=== PATIENT | male | born 1995 | race Two or more races ===

== ENCOUNTER 2018-06-07 05:17 | Inpatient (IN) | payer BC ==
[2018-06-06 13:49] VITALS: BMI 23.9
[2018-06-07] MEDS ORDERED: PROPOFOL 20 ML ONE ×2 (07:15→08:28)
[2018-06-07] MEDS ORDERED: MIDAZOLAM HCL 2 MG/2 ML SINGLE DOSE VIAL ONE (07:15)
[2018-06-07] MEDS ORDERED: ROCURONIUM BROMIDE 50 MG/5 ML VIAL ONE ×2 (07:18→08:39)
[2018-06-07] MEDS ORDERED: LIDOCAINE HCL/PF 2% SDV 5ML VIAL ONE (07:20)
[2018-06-07] MEDS ORDERED: SUCCINYLCHOLINE CHLORIDE 200 MG/10 ML VIAL ONE (07:23)
[2018-06-07] MEDS ORDERED: BUPIVACAINE HCL/PF 0.5% (5MG/ML) 10 ML VIAL ONE (07:27)
[2018-06-07] MEDS ORDERED: THROMBIN (BOVINE) 5,000 UNIT VIAL TP ONE (07:27)
[2018-06-07] MEDS ORDERED: GENTAMICIN SO4 80 MG/2 ML VIAL ONE (07:28)
[2018-06-07] MEDS ORDERED: PHENYLEPHRINE HCL 10 MG/1 ML SINGLE DOSE VIAL ONE (07:30)
[2018-06-07] MEDS ORDERED: ePHEDrine SULFATE 50 MG/1 ML AMPULE ONE (07:30)
--- NOTE | 2018-06-07 08:12 | HP ---
CHIEF COMPLAINT: neck pain PCP: HISTORY OF PRESENT ILLNESS: 23 yo M with no significant PMHx presents for elective neurosurgery. He states for the past several months he has had progressive cervical pain. He describes constant 8/10 right neck that radiates down right arm. Pain is exacerbated by sudden movements with no alleviating factors. Accompanied by numbness and tingling down right arm. He has been diagnosed with cervical spondylolysis and instability. He denies CP, GRANADOS, SOB, abdominal pain, nausea, vomiting, fever or chills. Recent Travel:Denies PAST MEDICAL HISTORY:none PAST SURGICAL HISTORY: maxilofacial surgery. Social History: Smoking:quit ; previous 2 pack year history. Alcohol:social Drugs: marijuana in past. Family History:Mother (HTN) Allergies No Known Allergies Allergy (Verified 06/06/18 13:43) HOME MEDICATIONS: Home Medications Medication Instructions Recorded NK [No Known Home Medication] 06/06/18 REVIEW OF SYSTEMS CONSTITUTIONAL: Absent: fever, chills, diaphoresis, generalized weakness, malaise, loss of appetite, weight change HEENT: Absent: rhinorrhea, nasal congestion, throat pain, throat swelling, difficulty swallowing, mouth swelling, ear pain, eye pain, visual changes CARDIOVASCULAR: Absent: chest pain, syncope, palpitations, irregular heart rate, lightheadedness , peripheral edema RESPIRATORY: Absent: cough, shortness of breath, dyspnea with exertion, orthopnea, wheezing, stridor, hemoptysis GASTROINTESTINAL: Absent: abdominal pain, abdominal distension, nausea, vomiting, diarrhea, constipation, melena, hematochezia GENITOURINARY: Absent: dysuria, frequency, urgency, hesitancy, hematuria, flank pain, genital pain MUSCULOSKELETAL: Absent: myalgia, arthralgia, joint swelling, back pain, neck pain SKIN: Absent: rash, itching, pallor HEMATOLOGIC/IMMUNOLOGIC: Absent: easy bleeding, easy bruising, lymphadenopathy, frequent infections ENDOCRINE: Absent: unexplained weight gain, unexplained weight loss, heat intolerance, cold intolerance NEUROLOGIC: paresthesias Absent: headache, focal weakness, dizziness, unsteady gait, seizure, mental status changes, bladder or bowel incontinence PSYCHIATRIC: Absent: anxiety, depression, suicidal or homicidal ideation, hallucinations. PHYSICAL EXAMINATION Vital Signs - 24 hr 06/07/18 06:49 Temperature 98.5 F Pulse Rate 78 Respiratory 16 Rate Blood Pressure 138/85 O2 Sat by Pulse 98 Oximetry (%) GENERAL: AAOx3, NAD HEAD: NCAT EYES: PERRLA, EOMI, sclera anicteric, conjunctiva clear. No lid lag. EARS, NOSE, THROAT: Moist mucous membranes. NECK: Supple without lymphadenopathy, JVD, or masses. LUNGS:CTAB. No wheezes, and no crackles. No accessory muscle use. HEART: RRR, normal S1 and S2 without murmur, rub or gallop. ABDOMEN: Soft, NTND, NABS, no guarding, no rebound, no masses. No hepatomegaly or splenomegaly. MUSCULOSKELETAL: No CVA tenderness. LOWER EXTREMITIES: 2+ pulses, warm, well-perfused. No calf tenderness. No peripheral edema. NEUROLOGICAL: Cranial nerves II-XII intact. Normal speech. gait not observed. 5 /5 strength upper and lower ext. No sensory def. PSYCHIATRIC: Cooperative. Good eye contact. Appropriate mood and affect. SKIN: Warm, dry, normal turgor, no rashes or lesions noted, normal capillary refill. ASSESSMENT/PLAN: 23 yo M with no significant PMHx presents for elective spinal surgery. Problem List - Problem (1) Cervical spondylolysis Assessment/Plan: Dr. Mustafa with take to OR today for elective spinal intervention. Visit type - Emergency Visit Emergency Visit: No - New Patient This patient is new to me today: Yes Date on this admission: 06/07/18 - Critical Care Critical Care patient: No
[2018-06-07] MEDS ORDERED: ceFAZolin 2 GRAM PREMIX BAG IVPB ONE (08:22)
[2018-06-07] MEDS ORDERED: VANCOMYCIN 1 GRAM (PRE-DOCKED) 1,000 MG/250 ML BAG IVPB ONE (08:30)
[2018-06-07] MEDS ORDERED: DEXAMETHASONE SOD PHOSPHATE 4 MG/1 ML VIAL ONE (08:31)
[2018-06-07] MEDS ORDERED: LIDOCAINE 1%/EPI 1:100000 (50 ML MULTI DOSE VIAL) NR ONE (08:41)
[2018-06-07] MEDS ORDERED: VANCOMYCIN 1,000 MG VIAL (RESTRICTED TO ID ONLY) ONE (08:43)
--- NOTE | 2018-06-07 09:00 | PN ---
Teaching Attending Note Name of Resident: Ayaz Cabrrea ATTENDING PHYSICIAN STATEMENT I saw and evaluated the patient. I reviewed the resident's note and discussed the case with the resident. I agree with the resident's findings and plan as documented. SUBJECTIVE: This is a 23 year old man with a history of cervical spondylosis and instability who comes in today for cervical spine surgery. For the past several months, he has been having worsening neck pain radiating down his right arm with numbness and tingling. OBJECTIVE: Vital Signs Period Temp Pulse Resp BP Sys/Alvarado Pulse Ox Last 24 Hr 98.5 F 78 16 138/85 98 HEART: S1S2, RRR LUNGS: Clear ABDOMEN: Soft, non-tender, non-distended, normal BS EXTREMITIES: No edema Laboratory Tests 06/07/18 06:23 Blood Type O POSITIVE Antibody Screen Negative Home Medications Medication Instructions Recorded NK [No Known Home Medication] 06/06/18 ASSESSMENT AND PLAN: This is a 23 year old man with a history of cervical spondylosis and instability with neck pain radiating down his right arm with numbness and tingling who comes in for cervical spine surgery. 1. Cervical spondylosis and instability - Plan for surgery today
[2018-06-07] MEDS ORDERED: ONDANSETRON 4 MG/2 ML VIAL ONE (09:13)
[2018-06-07] MEDS ORDERED: BACITRACIN 50,000 UNITS VIAL NR ONE (09:23)
[2018-06-07] MEDS ORDERED: GENTAMICIN SO4 80 MG/2 ML VIAL IVPB ONE (09:24)
[2018-06-07] MEDS ORDERED: HYDROGEN PEROXIDE 473 ML PO ONE (09:26)
[2018-06-07] MEDS ORDERED: NEOSTIGMINE METHYLSULFATE 0.5 MG/1 ML - 10 ML MDV ONE (09:34)
[2018-06-07] MEDS ORDERED: GLYCOPYRROLATE 0.2 MG/1 ML VIAL ONE (09:36)
[2018-06-07] MEDS ORDERED: ONDANSETRON 4 MG/2 ML VIAL IVPUSH PRN (09:46)
[2018-06-07] MEDS ORDERED: LACTATED RINGERS SOLUTION 1,000 ML IV SCH (10:00)
[2018-06-07] MEDS ORDERED: diphenhydrAMINE HCL 25 MG CAPSULE (FP) PO PRN (10:43)
[2018-06-07] MEDS ORDERED: HYDROmorphone HCl 2 MG/ML VIAL ONE (10:49)
[2018-06-07] MEDS: HYDROmorphone HCL CARPU-JECT 2 MG/1 ML DISP.SYRIN IVPUSH PRN ×4 (10:54→11:40)
--- NOTE | 2018-06-07 12:08 | OP ---
Operative Note - Note: Operative Date: 06/07/18 Pre-Operative Diagnosis: Cervical Spondylosis and instability Operation: C6 corpectomy and jew of lordosis with reconstruction using PEEK cage and anterior plating Post-Operative Diagnosis: Same as Pre-op Surgeon: Carmelo Mustafa Tip Mender: Leti Armenta Anesthesiologist/DIRECTOR OF MARKET ANALYSIS: Deedee Girard Anesthesia: General Estimated Blood Loss (mls): 30 Drains, Volume Out (mls): 450 (lainez) Fluid Volume Replaced (mls): 1,000 Operative Report Dictated: Yes
--- NOTE | 2018-06-07 12:09 | SURG ---
Surgery Options Trader Note Options Trader: Leti Armenta PA-C Date of Service: 06/07/18 Diagnosis: Cervical Spondylosis and instability Procedure: C6 corpectomy and nondenominational of lordosis with reconstruction using PEEK cage and anterior plating I was present for the entirety of the operative procedure. For further detail, please refer to operative report. Visit type - Case Type Case Type: Scheduled - Emergency Emergency Visit: No - New patient This patient is new to me today: Yes Date on this admission: 06/07/18
[2018-06-07] MEDS: ONDANSETRON 4 MG/2 ML VIAL IVPUSH PRN ×3 (14:02→20:16)
[2018-06-07] MEDS ORDERED: PROMETHAZINE HCL 25 MG/1 ML VIAL ONE (14:06)
[2018-06-07] MEDS ORDERED: PROMETHAZINE HCL 25 MG/1 ML VIAL IVPUSH ONE (14:12)
[2018-06-07] MEDS: LACTATED RINGERS SOLUTION 1,000 ML/1,000 ML INFUS.BAG IV SCH (14:41)
[2018-06-07] MEDS: DOCUSATE SODIUM 100 MG CAPSULE (FP) PO SCH ×2 (16:31→21:29)
[2018-06-07] MEDS ORDERED: ceFAZolin SODIUM 1 GM VIAL ONE (17:00)
[2018-06-07] MEDS ORDERED: DEXTROSE 5%-WATER - 50 ML IVPB ONE (17:00)
[2018-06-07] MEDS: CEFAZOLIN 1 GM in DEXTROSE 5%-WATER - 50 ML IVPB SCH (17:14)
[2018-06-07] MEDS ORDERED: FLU VACCINE QUAD 60 MCG/0.5 ML (MDV 18-19) IM ONE (18:00)
[2018-06-07] MEDS: morphine SULFATE 4 MG/ML VIAL IVPUSH PRN (18:08)
[2018-06-07] MEDS: HEPARIN NA (PORCINE) 5,000 UNITS/ML 1ML VIAL SQ SCH (21:29)
[2018-06-08] MEDS ORDERED: ceFAZolin SODIUM 1 GM VIAL ONE ×3 (00:37→16:56)
[2018-06-08] MEDS ORDERED: DEXTROSE 5%-WATER - 50 ML IVPB ONE ×3 (00:37→16:56)
[2018-06-08] MEDS: CEFAZOLIN 1 GM in DEXTROSE 5%-WATER - 50 ML IVPB SCH ×3 (01:25→18:25)
[2018-06-08] MEDS: morphine SULFATE 4 MG/ML VIAL IVPUSH PRN ×2 (02:28→12:04)
[2018-06-08] MEDS: DOCUSATE SODIUM 100 MG CAPSULE (FP) PO SCH ×3 (05:35→21:16)
[2018-06-08] MEDS: HEPARIN NA (PORCINE) 5,000 UNITS/ML 1ML VIAL SQ SCH ×3 (05:35→21:24)
[2018-06-08 06:47] LABS: ANION GAP 6 MMOL/L (8-16); BLOOD UREA NITROGEN 12 mg/dL (7-18); CALCIUM 9.6 mg/dL (8.5-10.1); CHLORIDE 100 mmol/L (98-107); CO2 31 mmol/L (21-32); CREATININE 0.8 mg/dL (0.55-1.3); GLUCOSE,RANDOM 96 mg/dL (74-106); POTASSIUM 3.7 mmol/L (3.5-5.1); SODIUM 138 mmol/L (136-145)
[2018-06-08 06:49] LABS: HEMATOCRIT 41.6 % (35.4-49); HEMOGLOBIN 13.8 GM/dL (11.7-16.9); MCH 28.3 pg (25.7-33.7); MCHC 33.2 g/dl (32.0-35.9); MEAN CELL VOLUME 85.3 fl (80-96); MEAN PLT VOLUME 8.2 fl (7.5-11.1); PLATELET COUNT 249 K/MM3 (134-434); RBC 4.87 M/mm3 (4.00-5.60); RDW 13.1 % (11.9-15.9); WHITE BLOOD COUNT 14.9 K/mm3 (4.0-10.0)
[2018-06-08] MEDS ORDERED: BENZOCAINE/MENTH/CETYLPYRD CL 1 EACH LOZENGE MM PRN (08:49)
--- NOTE | 2018-06-08 08:54 | PN ---
Progress Note (short form) - Note Progress Note: Surgery POD #1 C5-C7 ACDF patient seen and examined at bedside. He reports one episode of vomiting last night but denies nausea. C/o sore throat and some phlegm but wants to eat this morning. He still has some paresthesias in his hands right> left but denies any new or worsening radiculopathy. He states his pain is controlled and he has been OOB ambulating without assistance. He denies any CP, SOB, Nausea, fever or chills. Vital Signs Temp 98.2 F 06/08/18 06:00 Pulse 70 06/08/18 06:00 Resp 18 06/08/18 06:00 BP 142/95 06/08/18 06:00 Pulse Ox 99 06/07/18 21:00 Intake & Output 06/07/18 06/07/18 06/08/18 11:59 23:59 11:59 Intake Total 1650 425 Output Total 460 875 800 Balance 1190 -450 -800 Intake: IV 1650 375 LACTATED RINGERS SOLUTION 375 1,000 ml In 1,000 ml @ 125 mls/hr IV ASDIR HUYEN Rx#:[id number] IVPB 50 Output: Urine 450 875 800 Void 575 800 Estimated Blood Loss 10 Other: Voiding Method Urinal # Unmeasured Voids Void 1 CBC, BMP 06/08/18 05:30 06/08/18 05:30 ALISIA Drain did not put out anything overnight, was found to be clotted off. Stripped this morning at bedside, produced 25cc of drainage with clots seen throughout. Drain tubing was patent after stripping. PE: A&Ox3, NAD Unlabored resp on RA Dressing c/d/i with surrounding tissue intact, no tracking erythema, edema or evidence of collection or active d/c. Drain secure and clean and dry. trachea at midline no deviation of thyroid upon swallowing. B/L UE gripping and wrist extension and flexion. Gross sensation to light touch intact throughout. B/L LE compartments soft, supple and non-tender to palpation with +2 pedal pulses Problem List - Problems (1) Cervical spondylolysis Assessment/Plan: POD #1 ACDF doing well. 1) Continue DVT prophylaxis 2) OOB as tolerated 3) encourage daily IS 4) c-collar 23hr/day 5) plan to d/c drain this afternoon and d/c home pending drain output. Evaluation and plan discussed with Dr Mustafa Code(s): M43.02 - SPONDYLOLYSIS, CERVICAL REGION
[2018-06-08] MEDS ORDERED: PT OWN MED DRAWER 7, Y5N ONE (09:33)
[2018-06-08] MEDS: FOLIC ACID 1 MG TABLET (FP) PO SCH (09:51)
[2018-06-08] MEDS: FERROUS SO4 325 MG TABLET (FP) PO SCH (09:51)
[2018-06-08] MEDS: LACTATED RINGERS SOLUTION 1,000 ML/1,000 ML INFUS.BAG IV SCH (12:52)
--- NOTE | 2018-06-08 13:24 | PROC ---
Procedure Note Procedure: ALISIA removed from anterior neck with distal tip intact. Area around ostium cleansed. Edges approximated and covered with dermabond, as well as transverse incision. Covered both with new clean dry dressing. Tolerated well. DC planning 06/09/18
--- NOTE | 2018-06-08 15:44 | PN ---
Physical Exam: SUBJECTIVE: Patient seen and examined this morning at bedside. Patient feels some tenderness over the incision site and upper back however it improves with morphine. Continues to use his incentive spirometer multiple times an hour. Complains of some throat soreness and cough productive of clear phlegm. Able to urinate however he feels he does not completely empty his bladder. Denies any fevers, chills, nausea, vomiting or SOB. OBJECTIVE: Vital Signs Period Temp Pulse Resp BP Sys/Alvarado Pulse Ox Last 24 Hr 97.8 F-98.3 F 68-88 15-20 137-150/75-95 98-99 GENERAL: A&Ox3, NAD HEAD: NCAT EYES: PERRL, EOMI ENT: Moist mucous membranes NECK: Wearing cervical collar LUNGS: Breath sounds equal, CTAB, no wheezes HEART: Regular rate and rhythm, S1, S2 without murmur, rub or gallop. ABDOMEN: Soft, nontender, nondistended, normoactive bowel sounds, no guarding EXTREMITIES: 2+ pulses, no edema. NEUROLOGICAL: Cranial nerves II through XII grossly intact. Normal speech. Gait not observed. C5-T1 Gross sensation intact. 5/5 muscle strength to handgrip, elbow flexion and extension, shoulder abduction SKIN: Warm, dry Laboratory Results - last 24 hr 06/08/18 06/08/18 05:30 05:30 WBC 14.9 H RBC 4.87 Hgb 13.8 Hct 41.6 MCV 85.3 MCH 28.3 MCHC 33.2 RDW 13.1 Plt Count 249 MPV 8.2 Sodium 138 Potassium 3.7 Chloride 100 Carbon Dioxide 31 Anion Gap 6 L BUN 12 Creatinine 0.8 Creat Clearance w eGFR > 60 Random Glucose 96 Calcium 9.6 Active Medications Benzocaine/Menthol (Cepacol Lozenge -) 1 each MM PRN PRN PRN Reason: SORE THROAT Diphenhydramine HCl (Benadryl -) 25 mg PO Q6H PRN PRN Reason: FOR ITCHING Docusate Sodium (Colace -) 100 mg PO TID [facility] Last Admin: 06/08/18 15:15 Dose: 100 mg Ferrous Sulfate (Feosol -) 325 mg PO DAILY [facility] Last Admin: 06/08/18 09:51 Dose: 325 mg Folic Acid (Folic Acid -) 1 mg PO DAILY [facility] Last Admin: 06/08/18 09:51 Dose: 1 mg Heparin Sodium (Porcine) (Heparin -) 5,000 unit SQ Q8H [facility] Last Admin: 06/08/18 15:14 Dose: 5,000 unit Cefazolin Sodium 1 gm/ (Dextrose) 50 mls @ 100 mls/hr IVPB Q8H [facility] Last Admin: 06/08/18 18:25 Dose: 100 mls/hr Lactated Ringer's (Lactated Ringers Solution) 1,000 ml in 1,000 mls @ 125 mls/ hr IV ASDIR [facility] Last Admin: 06/08/18 12:52 Dose: Not Given Morphine Sulfate (Morphine Sulfate) 3 mg IVPUSH Q4H PRN PRN Reason: breakthrough Last Admin: 06/08/18 12:04 Dose: 3 mg Ondansetron HCl (Zofran Injection) 4 mg IVPUSH Q6H PRN PRN Reason: NAUSEA Last Admin: 06/07/18 20:16 Dose: 4 mg Oxycodone HCl (Roxicodone -) 5 mg PO Q4H PRN PRN Reason: PAIN LEVEL 1-5 Last Admin: 06/08/18 18:22 Dose: 5 mg Oxycodone HCl (Roxicodone -) 10 mg PO Q4H PRN PRN Reason: PAIN LEVEL 6-10 ASSESSMENT/PLAN: 23 yo M with no significant PMHx presents for elective spinal surgery. #Cervical Spondylolysis -POD#1 S/P C6 corpectomy and mandaeism of lordosis with reconstruction using PEEK cage and anterior plating -ALISIA Drain removed from anterior neck, wound site dressed by Surgical PA -Continue pain control via Morphine, Oxycodone -Zofran for Nausea -Continue Cefazolin (Started on 06/07) -Bowel regimen via Colace -Incentive spirometer -OOB as tolerated -Continue to use C-Collar 23 hours/day -Neuro checks Q2H #FEN -LR @ 125 mls/hr -Lytes wnl -Regular diet #PPx -DVT: Heparin Dispo: Likely DC tmrw Visit type - Emergency Visit Emergency Visit: No - New Patient This patient is new to me today: Yes Date on this admission: 06/08/18 - Critical Care Critical Care patient: No - Discharge Referral Referred to [facility] No
[2018-06-08] MEDS: oxyCODONE HCL 5 MG TABLET PO PRN ×2 (18:22→21:41)
--- NOTE | 2018-06-08 19:06 | PN ---
Teaching Attending Note Name of Resident: Katerina Diaz ATTENDING PHYSICIAN STATEMENT I saw and evaluated the patient. I reviewed the resident's note and discussed the case with the resident. I agree with the resident's findings and plan as documented. SUBJECTIVE:seen around 1 pm No fever or chills, neck pain. no weakness. LUE numbness OBJECTIVE: NAD CV: RRR Lungs: CTAB Ext : no edema anterior neck surgical dressing with drain . Neuro : strength 5/5 in upper and lower ext proximally and distally. reflexes 2 + knee jerk and biceps b/l . sensation decreased to light touch in L hand, arm and upper arm ASSESSMENT AND PLAN: 23 y/o man withh/o cervical spondylosis with instanility who presented for sx. 1- cervical spondylosis, s/p corpectomy and pentecostal of lordosis . POD 1 - pain control . dc morphine , cont oxy - drain removal tody monitor gait and neuro exam d/w sx team leukocytosis is likely reactive dc tomorrow
[2018-06-09] MEDS ORDERED: ceFAZolin SODIUM 1 GM VIAL ONE ×3 (00:32→16:47)
[2018-06-09] MEDS ORDERED: DEXTROSE 5%-WATER - 50 ML IVPB ONE ×3 (00:32→16:47)
[2018-06-09] MEDS: CEFAZOLIN 1 GM in DEXTROSE 5%-WATER - 50 ML IVPB SCH ×3 (00:35→16:59)
[2018-06-09] MEDS: oxyCODONE HCL 5 MG TABLET PO PRN ×5 (01:35→22:12)
[2018-06-09] MEDS: HEPARIN NA (PORCINE) 5,000 UNITS/ML 1ML VIAL SQ SCH ×3 (05:33→22:11)
[2018-06-09] MEDS: DOCUSATE SODIUM 100 MG CAPSULE (FP) PO SCH ×3 (05:33→22:11)
[2018-06-09 08:07] LABS: BASO % 0.1 % (0-2.0); EOS % 0.1 % (0-4.5); HEMATOCRIT 40.5 % (35.4-49); HEMOGLOBIN 13.2 GM/dL (11.7-16.9); LYMPH % 13.2 % (8-40); MCH 27.8 pg (25.7-33.7); MCHC 32.6 g/dl (32.0-35.9); MEAN CELL VOLUME 85.2 fl (80-96); MEAN PLT VOLUME 8.4 fl (7.5-11.1); MONO % 10.9 % (3.8-10.2); NEUT % 75.7 % (42.8-82.8); PLATELET COUNT 218 K/MM3 (134-434); RBC 4.75 M/mm3 (4.00-5.60); RDW 13.2 % (11.9-15.9); WHITE BLOOD COUNT 16.1 K/mm3 (4.0-10.0)
--- NOTE | 2018-06-09 08:30 | DS ---
Physical Exam: SUBJECTIVE: Patient seen and examined OBJECTIVE: Vital Signs Period Temp Pulse Resp BP Sys/Alvarado Pulse Ox Last 24 Hr 98.7 F-98.9 F 83-92 18-20 126-147/94-98 PHYSICAL EXAM GENERAL: The patient is awake, alert, and fully oriented, in no acute distress. HEAD: Normal with no signs of trauma. EYES: PERRL, extraocular movements intact, sclera anicteric, conjunctiva clear. ENT: Ears normal, nares patent, oropharynx clear without exudates, moist mucous membranes. NECK: Trachea midline, full range of motion, supple. LUNGS: Breath sounds equal, clear to auscultation bilaterally, no wheezes, no crackles, no accessory muscle use. HEART: Regular rate and rhythm, S1, S2 without murmur, rub or gallop. ABDOMEN: Soft, nontender, nondistended, normoactive bowel sounds, no guarding, no rebound, no hepatosplenomegaly, no masses. EXTREMITIES: 2+ pulses, warm, well-perfused, no edema. NEUROLOGICAL: Cranial nerves II through XII grossly intact. Normal speech, gait not observed. PSYCH: Normal mood, normal affect. SKIN: Warm, dry, normal turgor, no rashes or lesions noted. LABS HOSPITAL COURSE: Date of Admission:06/07/18 Date of Discharge: 06/09/18 Discharge Summary Reason For Visit: CERVICAL SPONDYLOSIS & INSTABILITY Current Active Problems Cervical spondylolysis (Acute) Condition: Stable - Instructions Diet, Activity, Other Instructions: Post Operative Instructions Physical Activity Resume your normal everyday activity as tolerated. No heavy lifting or exercise until seen by your surgeon. You may walk unlimited amounts and climb stairs. You may resume driving the car when you feel safe and comfortable behind the wheel and you are no longer wearing your brace. Do not operate a vehicle while taking narcotic medication. Brace If you had neck surgery, wear surgical collar 23 hr/day. Remove to shower only. Wound Care Keep your incision clean, dry and covered at all times. Apply an occlusive dressing (Saran wrap or Tegaderm) when showering to avoid getting your incision wet. Do not submerge incision or apply ointments or creams. Diet There are no dietary restrictions. Eat healthy, high-fiber foods. Drink 6-8 glasses of liquid each day. This will assist in keeping your bowels regular. Pain Management You may take Tylenol or acetaminophen. Any pain prescription medication ordered should be taken as prescribed for moderate to severe pain. Call Dr Cm for any of the following: Severe pain not relieved by medication Fever of 101 or higher Excessive bleeding or drainage on dressing Inability to urinate Any chest pain or shortness of breath, seek Emergency Care. Call the office to confirm a post-operative appointment for 2-3 weeks post-op Carmelo Mustafa MD [facility] [address] [place] [address] [place] [address] Referrals: Carmelo Mustafa MD, FAANS [Staff Physician] - 2 Weeks Disposition: HOME - Home Medications Comprehensive Discharge Medication List: Ambulatory Orders Acetaminophen [Tylenol] 650 mg PO Q6H #90 tablet 06/09/18 Oxycodone HCl 5 mg PO Q8H PRN #9 tablet MDD 3 tab daily 06/09/18 - Discharge Referral Referred to [facility] Med [facility].C.: No
--- NOTE | 2018-06-09 08:33 | PN ---
Progress Note (short form) - Note Progress Note: 23yo M s/p C5-7 ACDF, seen and examined at bedside. Pt states that he has been ambulating. Pt denies n/v, fever, chills. Pt complains of some pain with swallowing, but is tolerating PO. Last Vital Signs Temp Pulse Resp BP Pulse Ox 98.8 F 92 H 20 147/95 99 06/09/18 06:00 06/09/18 06:00 06/09/18 06:00 06/09/18 06:00 06/07/18 21:00 CBC, BMP 06/08/18 05:30 PE: Gen: A&O x3 Resp: breathing comfortably Neck: incision is clean with no erythema or discharge, mild tenderness with palpation. Upper extremity: no weakness or numbness, no edema. Problem List - Problems (1) Cervical spondylolysis Assessment/Plan: Plan -pt should be cleared to go home from neurosurgery standpoint, follow up with Dr. Mustafa as outpatient -pain management -OOB/ambulate Code(s): M43.02 - SPONDYLOLYSIS, CERVICAL REGION
[2018-06-09] MEDS: FERROUS SO4 325 MG TABLET (FP) PO SCH (11:09)
[2018-06-09] MEDS: FOLIC ACID 1 MG TABLET (FP) PO SCH (11:10)
[2018-06-09] MEDS: LACTATED RINGERS SOLUTION 1,000 ML/1,000 ML INFUS.BAG IV SCH (12:26)
--- NOTE | 2018-06-09 12:49 | PN ---
Teaching Attending Note Name of Resident: Katerina Diaz ATTENDING PHYSICIAN STATEMENT I saw and evaluated the patient. I reviewed the resident's note and discussed the case with the resident. I agree with the resident's findings and plan as documented. SUBJECTIVE: No fever or chills . has throat pain. no weakness, numbness or tingling. OBJECTIVE: NAD CV: RRR Lungs: CTAB Ext : no edema anterior neck surgical dressing with drain . Neuro : strength 5/5 in upper and lower ext proximally and distally. reflexes 2 + knee jerk and biceps b/l . sensation to light touch nl on all extremities ASSESSMENT AND PLAN: 23 y/o man withh/o cervical spondylosis with instanility who presented for sx. 1- cervical spondylosis, s/p corpectomy and adventism of lordosis . POD 2./ doing well - pain control. ocy and tylenol. no NSAIDs - no neuro deficits today - d/w Dr. Cm . monitor.
[2018-06-09] MEDS: guaiFENesin 200 MG/10 ML 10 ML UNIT-DOSE CUPS PO PRN ×2 (15:23→22:11)
--- NOTE | 2018-06-09 18:48 | PN ---
Physical Exam: SUBJECTIVE: Patient seen and examined this morning at bedside. Continues to complain of 7/10 soreness at the surgical site and upper back. Requested Oxycodone 10mg x 3 overnight as per nursing staff. Also complains of difficulty swallowing and phlegm production. Continues to use Incentive spirometer. Denies any fevers, chills, chest pain, nausea, vomiting or SOB. OBJECTIVE: Vital Signs Period Temp Pulse Resp BP Sys/Alvarado Pulse Ox Last 24 Hr 98.1 F-98.8 F 92-106 20-20 141-149/80-95 GENERAL: A&Ox3, NAD HEAD: NCAT EYES: PERRL, EOMI ENT: Moist mucous membranes NECK: Wearing cervical collar LUNGS: Breath sounds equal, CTAB, no wheezes HEART: Regular rate and rhythm, S1, S2 without murmur, rub or gallop. ABDOMEN: Soft, nontender, nondistended, normoactive bowel sounds, no guarding EXTREMITIES: 2+ pulses, no edema. NEUROLOGICAL: Cranial nerves II through XII grossly intact. Normal speech. Gait not observed. C5-T1 Gross sensation intact. 5/5 muscle strength to handgrip, elbow flexion and extension, shoulder abduction SKIN: Warm, dry Laboratory Results - last 24 hr 06/09/18 07:00 WBC 16.1 H RBC 4.75 Hgb 13.2 Hct 40.5 MCV 85.2 MCH 27.8 MCHC 32.6 RDW 13.2 Plt Count 218 MPV 8.4 Absolute Neuts (auto) 12.2 H Neutrophils % 75.7 D Lymphocytes % 13.2 D Monocytes % 10.9 H Eosinophils % 0.1 D Basophils % 0.1 Nucleated RBC % 0 Active Medications Benzocaine/Menthol (Cepacol Lozenge -) 1 each MM PRN PRN PRN Reason: SORE THROAT Last Admin: 06/09/18 05:44 Dose: 1 each Diphenhydramine HCl (Benadryl -) 25 mg PO Q6H PRN PRN Reason: FOR ITCHING Docusate Sodium (Colace -) 100 mg PO TID [facility] Last Admin: 06/09/18 15:23 Dose: 100 mg Ferrous Sulfate (Feosol -) 325 mg PO DAILY [facility] Last Admin: 06/09/18 11:09 Dose: 325 mg Folic Acid (Folic Acid -) 1 mg PO DAILY [facility] Last Admin: 06/09/18 11:10 Dose: 1 mg Guaifenesin (Robitussin -) 10 ml PO Q8H PRN PRN Reason: COUGH Last Admin: 06/09/18 15:23 Dose: 10 ml Heparin Sodium (Porcine) (Heparin -) 5,000 unit SQ Q8H [facility] Last Admin: 06/09/18 15:23 Dose: 5,000 unit Cefazolin Sodium 1 gm/ (Dextrose) 50 mls @ 100 mls/hr IVPB Q8H [facility] Last Admin: 06/09/18 16:59 Dose: 100 mls/hr Ondansetron HCl (Zofran Injection) 4 mg IVPUSH Q6H PRN PRN Reason: NAUSEA Last Admin: 06/07/18 20:16 Dose: 4 mg Oxycodone HCl (Roxicodone -) 5 mg PO Q4H PRN PRN Reason: PAIN LEVEL 1-5 Last Admin: 06/08/18 18:22 Dose: 5 mg Oxycodone HCl (Roxicodone -) 10 mg PO Q4H PRN PRN Reason: PAIN LEVEL 6-10 Last Admin: 06/09/18 17:00 Dose: 10 mg IMAGING: -CT C-Spine without contrast: Status post anterior fusion of C5-C7 with corpectomy of C6 vertebral body, in satisfactory alignment. Postop changes, soft tissue swelling and soft tissue air as well as an anterior drainage catheter, as described above. Follow-up is needed ASSESSMENT/PLAN: 23 yo M with no significant PMHx presents for elective spinal surgery. #Cervical Spondylolysis -POD#2 S/P C6 corpectomy and synagogue of lordosis with reconstruction using PEEK cage and anterior plating -ALISIA Drain removed from anterior neck (06/08), wound site dressed by Surgical PA -Continue pain control via Oxycodone, tylenol, Avoid NSAIDs -Zofran for Nausea -Continue Cefazolin (Started on 06/07) -Bowel regimen via Colace -Incentive spirometer -OOB as tolerated -Continue to use C-Collar 23 hours/day -Neuro checks Q2H #FEN -PO Fluids -Lytes wnl -Regular diet #PPx -DVT: Heparin Dispo: Likely DC tmrw Visit type - Emergency Visit Emergency Visit: Yes ED Registration Date: 06/07/18 Care time: The patient presented to the Emergency Department on the above date and was hospitalized for further evaluation of their emergent condition. - New Patient This patient is new to me today: No - Critical Care Critical Care patient: No - Discharge Referral Referred to [facility] No
[2018-06-10] MEDS: DOCUSATE SODIUM 100 MG CAPSULE (FP) PO SCH ×3 (06:57→21:52)
[2018-06-10] MEDS: oxyCODONE HCL 5 MG TABLET PO PRN ×2 (06:58→11:24)
[2018-06-10] MEDS: HEPARIN NA (PORCINE) 5,000 UNITS/ML 1ML VIAL SQ SCH ×3 (07:00→21:52)
[2018-06-10 08:02] LABS: BASO % 0.2 % (0-2.0); EOS % 0.3 % (0-4.5); HEMATOCRIT 41.9 % (35.4-49); HEMOGLOBIN 13.7 GM/dL (11.7-16.9); LYMPH % 17.6 % (8-40); MCH 28.1 pg (25.7-33.7); MCHC 32.8 g/dl (32.0-35.9); MEAN CELL VOLUME 85.5 fl (80-96); MEAN PLT VOLUME 8.6 fl (7.5-11.1); MONO % 11.2 % (3.8-10.2); NEUT % 70.7 % (42.8-82.8); PLATELET COUNT 246 K/MM3 (134-434); WHITE BLOOD COUNT 12.6 K/mm3 (4.0-10.0)
--- NOTE | 2018-06-10 10:02 | PROC ---
Procedure Note Procedure: Pt states that he is feeling much better today as far as throat pain and swallowing. He is having less phlegm and can swallow ice and thicker liquids easier today. Vital Signs Period Temp Pulse Resp BP Sys/Alvarado Pulse Ox Last 24 Hr 98 F-98.7 F 95-106 18-20 139-163/77-102 99 GEN: A&0x3, NAD Neck: Collar in place, dressing c/d/i. No masses or swelling noted. Upper ext: Good biodiesel product manager strength b/l. Flexion/extension 5/5 b/l. CBC, BMP 06/10/18 06:30 06/08/18 05:30 A/p: 23 yo male s/p C6 corpectomy and denominational of lordosis, POD#3 D/w Dr. Mustafa, pt seems to be improving with pain symptoms and difficulty swallowing. He is now able to tolerate oral pain medications and liquids. May proceed with the barium swallow study today for further recommendations. Continue oob and ambulate DVT ppx with heparin SQ
[2018-06-10] MEDS: FOLIC ACID 1 MG TABLET (FP) PO SCH ×2 (10:07→13:45)
[2018-06-10] MEDS: FERROUS SO4 325 MG TABLET (FP) PO SCH ×2 (10:07→13:45)
--- NOTE | 2018-06-10 11:47 | CONSULT ---
Admitting History and Physical - Admission History of Present Illness: 23 y/o man withh/o cervical spondylosis with instanility who presented for sx. Pre-Operative Diagnosis: Cervical Spondylosis and instability Operation: C6 corpectomy and church of lordosis with reconstruction using PEEK cage and anterior plating 06/07 Diet order - regular/thin liquid Selected Entries 06/07/18 06/08/18 06/09/18 18:30 22:44 06:00 Lunch Supper 25% 50% Temperature 98.8 F 06/09/18 06/09/18 06/09/18 15:05 16:30 18:30 Lunch 75% Supper 25% Temperature 98.7 F 98.1 F 06/09/18 06/10/18 06/10/18 22:00 02:00 06:00 Lunch Supper Temperature 98.3 F 98.6 F 98 F 06/10/18 09:05 Lunch Supper Temperature 98.4 F Laboratory Tests 06/08/18 06/09/18 06/10/18 05:30 07:00 06:30 WBC 14.9 H 16.1 H 12.6 H Pt reports that he is able to tolerate a little of smoothie brought from home and sips of water, but with moderate pain 7/10. He swallows his saliva better than the water but is expectorating phlegm frequently. History Source: Patient, Medical Record Limitations to Obtaining History: No Limitations - Smoking History Smoking history: Former smoker Have you smoked in the past 12 months: No - Alcohol/Substance Use Hx Alcohol Use: Yes (social) History - Admission Reason For Visit: CERVICAL SPONDYLOSIS & INSTABILITY - General Mental Status: Alert and Oriented, Awake and Alert, Able to Follow Commands Attention: Intact Ability to Follow Directions: Excellent Head/Neck Control: Fair (Hard neck brace) - Hearing Hearing: Normal Speech Evaluation - Communication Primary Language: YAKUT Communication: Yes: Within Normal Limits Oral Expression Ability: Yes: No Impairment - Speech Production Able to Make Needs Known: Yes: WNL Intelligibility: Yes: WNL - Speech Characteristics Voice Loudness: Normal Voice Pitch: Yes: Normal Voice Phonatory-based Quality: Yes: Normal Nasal Resonance: Normal Articulation: Yes: Precise - Language/Auditory Comprehension Follows: Yes: Complex Commands - Language/Verbal Expression Able to Respond to Simple Queries: Yes: WNL Able to Communicate Wants and Needs: Yes: WNL Functional Communication Status: Yes: WNL - 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 Limited amount) Dentition: Yes: Adequate Facial Symmetry at Rest: Symmetrical Facial Symmetry on Retraction: Symmetrical Against Resistance Opening: Normal Against Resistance Closing: Normal Pucker Lips: Normal Smile: Normal Lingual Movement: Normal, Symmetric Lingual Speed of Movement: Normal Lingual Movement Strgth Against Opposition: Normal Lingual Movement Characteristics: Normal Velopharyngeal Movement: Normal Laryngeal Elevation: Impaired Laryngeal Movement: Able to Palpate, Reduced Excursion Labial Seal: WFL Oral Prep Time: WFL A-P Transit: WFL Pocketing: None Odynophagia: Pharyngeal ("7" out of 10 on pain scale) Coughing/Throat Clear: Yes Recommendations - Speech Evaluation, Impression/Plan Impression: s/p recent surgery with odynophagia and significant Dysphagia. Suspect swelling with impaired laryngeal excursion, reduced laryngeal elevation and stasis. - Dysphagia Impressions/Plan Swallowing Skills: Impaired Dysphagia Impressions: Moderate Impairment *Silent aspiration: cannot be R/O at bedside Recommendations: Modified Barium Swallow, Other (Consider IV hydration, pain mgmt, mgmt of possible swelling,)
[2018-06-10] MEDS ORDERED: SODIUM CHLORIDE 1,000 ML IV SCH (16:15)
--- NOTE | 2018-06-10 18:33 | PN ---
Teaching Attending Note Name of Resident: Katerina Diaz ATTENDING PHYSICIAN STATEMENT I saw and evaluated the patient. I reviewed the resident's note and discussed the case with the resident. I agree with the resident's findings and plan as documented. SUBJECTIVE: No fever or chills . feels better today , still has pain with swallowing but better compared to yesterday. no weakness. OBJECTIVE: NAD CV: RRR Lungs: CTAB Ext : no edema anterior neck surgical dressing with drain . Neuro : strength 5/5 in upper and lower ext proximally and distally. reflexes 2 + knee jerk and biceps b/l . sensation to light touch nl on all extremities ASSESSMENT AND PLAN: 23 y/o man withh/o cervical spondylosis with instanility who presented for sx. 1- cervical spondylosis, s/p corpectomy and buddhism of lordosis . POD 3./ doing well - pain control. oxy and tylenol. no NSAIDs - f/u with neuro sx 2- odynophagia: due to traumatic intubation . - MBS noted. - thinned out pureed diet with nectar thick liquids - ensure compact TID , no jello or icecream. No thin liquids or cold liquids. - cont withthis diet and need MBS before upgrading. - follow with Speech as out pt d/w Dr. Cm who will evaluate for dc today
[2018-06-10] MEDS: MORPHINE SULFATE 2 MG/ML VIAL IVPUSH PRN (18:40)
--- NOTE | 2018-06-10 20:38 | PN ---
Physical Exam: SUBJECTIVE: Patient seen and examined this morning at bedside. Continues to complain of difficulty swallowing and phlegm production. Denies any fevers, chills, chest pain, nausea, vomiting or SOB. OBJECTIVE: Vital Signs Period Temp Pulse Resp BP Sys/Alvarado Pulse Ox Last 24 Hr 98 F-98.6 F 95-105 18-20 139-163/77-102 98-99 GENERAL: A&Ox3, NAD HEAD: NCAT EYES: PERRL, EOMI ENT: Moist mucous membranes NECK: Wearing cervical collar LUNGS: Breath sounds equal, CTAB, no wheezes HEART: Regular rate and rhythm, S1, S2 without murmur, rub or gallop. ABDOMEN: Soft, nontender, nondistended, + bowel sounds, no guarding EXTREMITIES: 2+ pulses, no edema. NEUROLOGICAL: Cranial nerves II through XII grossly intact. Normal speech. Gait not observed. C5-T1 Gross sensation intact. 5/5 muscle strength to handgrip, elbow flexion and extension, shoulder abduction SKIN: Warm, dry Laboratory Results - last 24 hr 06/10/18 06:30 WBC 12.6 H RBC 4.90 Hgb 13.7 Hct 41.9 MCV 85.5 MCH 28.1 MCHC 32.8 RDW 13.0 Plt Count 246 MPV 8.6 Absolute Neuts (auto) 8.9 H Neutrophils % 70.7 Lymphocytes % 17.6 D Monocytes % 11.2 H Eosinophils % 0.3 D Basophils % 0.2 Nucleated RBC % 0 Active Medications Benzocaine/Menthol (Cepacol Lozenge -) 1 each MM PRN PRN PRN Reason: SORE THROAT Last Admin: 06/09/18 05:44 Dose: 1 each Diphenhydramine HCl (Benadryl -) 25 mg PO Q6H PRN PRN Reason: FOR ITCHING Docusate Sodium (Colace -) 100 mg PO TID [facility] Last Admin: 06/10/18 13:44 Dose: Not Given Ferrous Sulfate (Feosol -) 325 mg PO DAILY [facility] Last Admin: 06/10/18 13:45 Dose: Not Given Folic Acid (Folic Acid -) 1 mg PO DAILY [facility] Last Admin: 06/10/18 13:45 Dose: Not Given Guaifenesin (Robitussin -) 10 ml PO Q8H PRN PRN Reason: COUGH Last Admin: 06/09/18 22:11 Dose: 10 ml Heparin Sodium (Porcine) (Heparin -) 5,000 unit SQ Q8H [facility] Last Admin: 06/10/18 13:48 Dose: 5,000 unit Sodium Chloride (Normal Saline -) 1,000 mls @ 83 mls/hr IV ASDIR HUYEN Last Admin: 06/10/18 16:52 Dose: 83 mls/hr Morphine Sulfate (Morphine Sulfate) 2 mg IVPUSH Q3H PRN PRN Reason: PAIN LEVEL 1-5 Last Admin: 06/10/18 18:40 Dose: 2 mg Ondansetron HCl (Zofran Injection) 4 mg IVPUSH Q6H PRN PRN Reason: NAUSEA Last Admin: 06/07/18 20:16 Dose: 4 mg IMAGING: -CT C-Spine without contrast: Status post anterior fusion of C5-C7 with corpectomy of C6 vertebral body, in satisfactory alignment. Postop changes, soft tissue swelling and soft tissue air as well as an anterior drainage catheter, as described above. Follow-up is needed ASSESSMENT/PLAN: 23 yo M with no significant PMHx presents for elective spinal surgery. #Cervical Spondylolysis -POD#3 S/P C6 corpectomy and adventist of lordosis with reconstruction using PEEK cage and anterior plating -ALISIA Drain removed from anterior neck (06/08), wound site dressed by Surgical PA -Continue pain control via Oxycodone, tylenol, Avoid NSAIDs -Zofran for Nausea -Continue Cefazolin (Started on 06/07) -Bowel regimen via Colace -Incentive spirometer -OOB as tolerated -Continue to use C-Collar 23 hours/day -Neuro checks Q2H #Difficulty swallowing -Likely due to Traumatic intubation during operation -Speech and Swallow Consulted, Appreciate Rec's, MBS Completed -Diet Recs: Thinned out pureed food. Liberty thick liquid. Ensure compact 3 times a day. Avoid thin liquid and iced at this time. No Jell-O or ice cream. #FEN -PO Fluids -Lytes wnl -Puree diet with thinned out food, nectar thick liquid #PPx -DVT: Heparin Dispo: Likely DC tmrw Visit type - Emergency Visit Emergency Visit: No - New Patient This patient is new to me today: No - Critical Care Critical Care patient: No - Discharge Referral Referred to [facility] No
[2018-06-11] MEDS: MORPHINE SULFATE 2 MG/ML VIAL IVPUSH PRN (02:07)
[2018-06-11] MEDS: HEPARIN NA (PORCINE) 5,000 UNITS/ML 1ML VIAL SQ SCH ×2 (06:21→15:41)
[2018-06-11] MEDS: DOCUSATE SODIUM 100 MG CAPSULE (FP) PO SCH ×2 (06:22→15:41)
[2018-06-11] MEDS ORDERED: RANITIDINE HCL 150 MG TABLET (FP) PO ONE (12:15)
[2018-06-11] MEDS: FOLIC ACID 1 MG TABLET (FP) PO SCH (12:22)
[2018-06-11] MEDS: FERROUS SO4 325 MG TABLET (FP) PO SCH (12:22)
--- NOTE | 2018-06-11 12:25 | PN ---
Teaching Attending Note Name of Resident: Jaciel Mcdowell ATTENDING PHYSICIAN STATEMENT I saw and evaluated the patient. I reviewed the resident's note and discussed the case with the resident. I agree with the resident's findings and plan as documented. SUBJECTIVE: swallowing much improved and pain with swallowing also decreased. no weakness, numbness or tingling OBJECTIVE: NAD CV: RRR Lungs: CTAB Ext: no edema anterior neck surgical dressing Neuro : strength 5/5 in upper and lower ext proximally and distally. reflexes 2 + knee jerk and biceps b/l . sensation to light touch nl on all extremities ASSESSMENT AND PLAN: 23 y/o man withh/o cervical spondylosis with instanility who presented for sx. 1- cervical spondylosis, s/p corpectomy and shinto of lordosis . POD 4./ doing well - pain control. oxy and tylenol. no NSAIDs - f/u with neuro sx as out pt 2- Odynophagia: due to traumatic intubation . - thinned out pureed diet with nectar thick liquids - ensure compact TID , no jello or ice cream. No thin liquids or cold liquids. - cont with this diet and need MBS before upgrading. he was given prescription for mBS and referral to [facility] - follow with Speech as out pt dc home f/u wit hsx in 1 week
[2018-06-11 13:21] VITALS: BP 134/87; PULSE 94; TEMP 98.1
--- NOTE | 2018-06-11 19:23 | DS ---
Physical Exam: SUBJECTIVE: Patient seen and examined at bedside. Pt feels anxious. Otherwise no complaints. OBJECTIVE: Vital Signs Period Temp Pulse Resp BP Sys/Alvarado Pulse Ox Last 24 Hr 98.1 F-98.9 F 83-98 18-18 134-160/84-94 100-100 PHYSICAL EXAM Gen: sitting comfortably upright in chair with C-collar in place HEENT: NCAT, EOMI Neck: C-collar in place. No exam performed Cardio: slightly tachycardic about 90, reg rhythm, normal s1s2 Pulm: CTA b/l Abd: soft, nontender, nondistended Ext: 2+ pulses LABS HOSPITAL COURSE: Date of Admission:06/07/18 Date of Discharge: 06/11/18 Pt is a 23 y/o M with no PMH who came to [facility] for cervical corpectomy at C6 for cervical spondylosis. Surgery went well. Pt has some soreness of the throat following the procedure. Speech and swallow exam and MBS found small aspiration. Avoidance of thin liquids was recommended. Pt was discharged with instructions to f/u with PMD with outpt repeat MBS. Pt was advised. Verbalized understanding. Minutes to complete discharge: 45 Discharge Summary Reason For Visit: CERVICAL SPONDYLOSIS & INSTABILITY Condition: Stable - Instructions Diet, Activity, Other Instructions: Post Operative Instructions Physical Activity Resume your normal everyday activity as tolerated. No heavy lifting or exercise until seen by your surgeon. You may walk unlimited amounts and climb stairs. You may resume driving the car when you feel safe and comfortable behind the wheel and you are no longer wearing your brace. Do not operate a vehicle while taking narcotic medication. Brace If you had neck surgery, wear surgical collar 23 hr/day. Remove to shower only. Wound Care Keep your incision clean, dry and covered at all times. Apply an occlusive dressing (Saran wrap or Tegaderm) when showering to avoid getting your incision wet. Do not submerge incision or apply ointments or creams. Diet There are no dietary restrictions. Eat healthy, high-fiber foods. Drink 6-8 glasses of liquid each day. This will assist in keeping your bowels regular. Pain Management You may take Tylenol or acetaminophen. Any pain prescription medication ordered should be taken as prescribed for moderate to severe pain. Call Dr Cm for any of the following: Severe pain not relieved by medication Fever of 101 or higher Excessive bleeding or drainage on dressing Inability to urinate Any chest pain or shortness of breath, seek Emergency Care. Call the office to confirm a post-operative appointment for 2-3 weeks post-op Carmelo Mustafa MD [facility] [address] [place] [address] Diet : - thinned out pureed diet with nectar thick liquids . No thin liquids like water - ensure compact three times a day, no jello or ice cream. No thin liquids or cold liquids. - cont with this diet and need Modified barium swallow before upgrading diet -- -> please follow with speech pathologist after dc . follow with PCP . - If you are not able to swallow your medications, you can crush them and swallow them You need to follow up with your primary care doctor in 1 week. You need to have a repeat EKG and and Echocardiogram. Referrals: Carmelo Mustafa MD, FAANS [Staff Physician] - 2 Weeks Mamta Stephens MS, CCC [Speech Therapist] - 1 Week Disposition: HOME - Home Medications Comprehensive Discharge Medication List: Ambulatory Orders Acetaminophen [Tylenol] 650 mg PO Q6H #90 tablet 06/09/18 Oxycodone HCl 5 mg PO Q8H PRN #9 tablet MDD 3 tab daily 06/09/18 Miscellaneous Medical Supply [Outpatient Order] 1 each ASDIR #1 misc This patient is new to me today: No Emergency Visit: No Critical Care patient: No - Discharge Referral Referred to [facility] Med [facility] No
[2018-06-11] MEDS ORDERED: TAMSULOSIN HCL 0.4 MG CAP PO ONE (20:13)
--- NOTE | 2018-06-12 11:45 | EKG ---
Test Reason : Blood Pressure : / mmHG Vent. Rate : 091 BPM Atrial Rate : 091 BPM P-R Int : 160 ms QRS Dur : 096 ms QT Int : 368 ms P-R-T Axes : 067 068 029 degrees QTc Int : 452 ms NORMAL SINUS RHYTHM NORMAL ECG WHEN COMPARED WITH ECG OF 03-JUN-2018 11:23, RSR' PATTERN IN V1 IS NO LONGER PRESENT NONSPECIFIC T WAVE ABNORMALITY NOW EVIDENT IN LATERAL LEADS PATIENT SITTING UP IN BED DURING EKG Confirmed by JEREMIAS CASTILLO MD ([id number]) on 06/12/2018 11:44:38 AM Referred By: Carmelo Mustafa Confirmed By:JEREMIAS CASTILLO MD
== END 2018-06-11 18:27 | disposition home or self-care (01) | DRG 472 ==
LOC: JSAMEDAYSX 05:17 → J8W 16:24
PROVIDERS: ADMIT Internal Medicine; ATTEND Internal Medicine
PROC: 0RG20A0 Fusion of 2 or more Cervical Vertebral Joints with Interbody Fusion Device, Anterior Approach, Anterior Column, Open Approach (ICD-10-PCS; principal; 2018-06-07 08:00)
DX: M47.12 Other spondylosis with myelopathy, cervical region (principal); J95.89 Other postprocedural complications and disorders of respiratory system, not elsewhere classified; M53.2X2 Spinal instabilities, cervical region; R13.10 Dysphagia, unspecified; Y83.8 Other surgical procedures as the cause of abnormal reaction of the patient, or of later complication, without mention of misadventure at the time of the procedure
CPT/HCPCS: 36415; 72125-TC; 74230-TC-FY; 76000-TC-FY; 80048; 85025; 85027; 86850; 86900; 86901; 92611-GN; 93005; 93010; 94760; 97116-GP; 97161-GP; J1644; J7030

== ENCOUNTER 2018-06-15 07:27 | Emergency (ER) | payer BC ==
[2018-06-15 07:32] VITALS: BMI 24.9
--- NOTE | 2018-06-15 07:38 | PDOC ---
History of Present Illness - General History Source: Patient Exam Limitations: No Limitations - History of Present Illness Initial Comments: 06/15/18 08:46 The patient is a 23-year-old male with past medical history significant for childhood asthma, and cervical spondylosis s/p cervical corpectomy (on [address] Stefan Mustafa) presents to the emergency department with back pain. The patient presents with sudden onset of sharp shooting pain to the neck and back, that presented after getting up weirdly yesterday. The patient reports since last night the pain has been constant, without any modifying factor that alleviates the pain. The patient denies having any neck or back pain prior to yesterday, denies pain radiating to the arm. The patient states he was prescribed Tylenol for post-op pain, denies taking the medication. The patient reports hes been having difficulty swallowing secondary to swelling to the throat. The patient denies fever, chills, weakness, numbness to the arms, arm pain. Denies chest pain or shortness of breath. Allergies: NKA Social history: Former smoker. Social use of alcohol. Marijuana use reported. Surgical history: C6 corpectomy and quaker of lordosis with reconstruction using PEEK cage and anterior plating (on 06/07/[address] Stefan Mustafa) and Maxillofacial surgery PCP: Kate Luevano MD <Myah Marks - Last Filed: 06/15/18 08:46> - General History Source: Patient Exam Limitations: No Limitations <Katie Gardner - Last Filed: 06/15/18 13:40> - General Chief Complaint: Pain, Acute Stated Complaint: NECK PAIN S/P SURGERY Time Seen by Provider: 06/15/18 07:38 Past History <Myah Marks - Last Filed: 06/15/18 08:46> - Past Medical History Asthma: (Yes; A CHILD) CVA: No COPD: No CHF: No - Suicide/Smoking/Psychosocial Hx Smoking History: Never smoked Have you smoked in the past 12 months: No Information on smoking cessation initiated: No Hx Alcohol Use: No Drug/Substance Use Hx: No Substance Use Type: None Hx Substance Use Treatment: No <Katie Gardner - Last Filed: 06/15/18 13:40> - Past Medical History Allergies/Adverse Reactions: Allergies Allergy/AdvReac Type Severity Reaction Status Date / Time No Known Allergies Allergy Verified 06/15/18 07:32 Home Medications: Ambulatory Orders Acetaminophen [Tylenol] 650 mg PO Q6H #90 tablet 06/09/18 Oxycodone HCl 5 mg PO Q8H PRN #9 tablet MDD 3 tab daily 06/09/18 Review of Systems - Review of Systems Able to Perform ROS?: Yes Comments:: 06/15/18 08:46 GENERAL/CONSTITUTIONAL: No fever, no lethargy HEAD, EYES, EARS, NOSE AND THROAT: No eye discharge. No ear pain or discharge. No sore throat. CARDIOVASCULAR: No chest pain. RESPIRATORY: No cough, no wheezing. GASTROINTESTINAL: No pain, nausea, vomiting, diarrhea or constipation. GENITOURINARY: No dysuria, no change in urine output MUSCULOSKELETAL: + sharp back/neck pain. No joint pain. SKIN: No rash NEUROLOGIC: No headache, loss of consciousness, irritability. ENDOCRINE: No increased thirst. No abnormal weight change. ALLERGIC/IMMUNOLOGIC: No hives or skin allergy. <Myah Marks - Last Filed: 06/15/18 08:46> *Physical Exam - Vital Signs Last Vital Signs Temp Pulse Resp BP Pulse Ox 98 F 91 H 18 149/101 H 97 06/15/18 07:30 06/15/18 07:30 06/15/18 07:30 06/15/18 07:30 06/15/18 07:30 - Physical Exam Comments: 06/15/18 08:47 GENERAL: The patient is in no acute distress. HEAD: Normal with no signs of trauma. EYES: PERRLA, EOMI, sclera anicteric, conjunctiva clear. ENT: Ears normal, nares patent, oropharynx clear without exudates. Moist mucous membranes. NECK: +Cervical collar. No JVD, or masses. LUNGS: Breath sounds equal, clear to auscultation bilaterally. No wheezes, and no crackles. HEART:Regular rate and rhythm, normal S1 and S2 without murmur, rub or gallop. ABDOMEN: Soft, nontender. No guarding, no rebound. No masses palpable. EXTREMITIES: +Moving all extremities. Normal range of motion, no edema. No clubbing or cyanosis. No erythema, or tenderness. NEUROLOGICAL: Cranial nerves II through XII grossly intact. Normal speech. No focal neurological deficits. MUSCULOSKELETAL: Back non-tender to palpation, no CVA tenderness SKIN: Warm, Dry, normal turgor, no rashes or lesions noted. <Myah Marks - Last Filed: 06/15/18 08:46> - Vital Signs Last Vital Signs Temp Pulse Resp BP Pulse Ox 98 F 91 H 18 149/101 H 97 06/15/18 07:30 06/15/18 07:30 06/15/18 07:30 06/15/18 07:30 06/15/18 07:30 <Katie Gardner - Last Filed: 06/15/18 13:40> ED Treatment Course - LABORATORY CBC & Chemistry Diagram: 06/15/18 09:25 06/15/18 09:25 <Katie Gardner - Last Filed: 06/15/18 13:40> Medical Decision Making - Medical Decision Making 06/15/18 09:42 sarika is a 23 yo M who presents for evaluation of neck pain He has a h/o cervical spondolysthesis S/p C6 corectomy Pt had been doing well, did not require pain medications He apparently made some movement yesterday and developed severe neck pain No arm pain No weakness in the upper or lower extremities No numbness or paresthesias case reviewed with Dr. Mustafa Recommends MRI and Xray 06/15/18 09:55 Cervical Spine Xray - no fracture, or dislocation, pre vertebral soft tissue swelling Awaiting MRI 06/15/18 10:34 Labs wnl MRI now 06/15/18 13:[address] mustafa He thinks the findings are consistent with post operative changes Will plan to discharge to home 06/15/18 13:35 upon discharge pt states he has left arm pain with movement These finding were discussed with Dr Mustafa <Katie Gardner - Last Filed: 06/15/18 13:40> *DC/Admit/Observation/Transfer - Attestations Scribe Attestion: 06/15/18 08:47 Documentation prepared by Myah Marks, acting as medical administrative technician for Katie Gardner MD. <Myah Marks - Last Filed: 06/15/18 08:46> - Discharge Dispostion Decision to Admit order: No <Katie Gardner - Last Filed: 06/15/18 13:40> Diagnosis at time of Disposition: Cervical spondylolysis, Cervical spondylosis with myelopathy and radiculopathy - Discharge Dispostion Disposition: HOME Condition at time of disposition: Stable - Referrals Referrals: Kate Luevano MD [Staff Physician] - Carmelo Mustafa MD, FAANS [Staff Physician] - - Patient Instructions Printed Discharge Instructions: DI for Neck Pain Additional Instructions: Thank you for coming in to the ER today Please be sure to keep your follow up with Dr Mustafa in 1 week Please take pain medications as prescribed Please return to the ER for any other concerns or complaints - increasing neck pain, severe arm or leg pain, weakness in the extremities, numbness - Post Discharge Activity
[2018-06-15 09:40] LABS: BASO % 0.5 % (0-2.0); EOS % 1.2 % (0-4.5); HEMATOCRIT 41.3 % (35.4-49); HEMOGLOBIN 14.1 GM/dL (11.7-16.9); LYMPH % 24.4 % (8-40); MCH 28.8 pg (25.7-33.7); MCHC 34.1 g/dl (32.0-35.9); MEAN CELL VOLUME 84.6 fl (80-96); MEAN PLT VOLUME 7.6 fl (7.5-11.1); MONO % 8.6 % (3.8-10.2); NEUT % 65.3 % (42.8-82.8); PLATELET COUNT 349 K/MM3 (134-434); RBC 4.89 M/mm3 (4.00-5.60); RDW 12.5 % (11.9-15.9); WHITE BLOOD COUNT 8.6 K/mm3 (4.0-10.0)
[2018-06-15 09:58] LABS: ALK PHOS 49 U/L (45-117); ANION GAP 8 MMOL/L (8-16); BILIRUBIN,TOTAL 0.7 mg/dL (0.2-1); BLOOD UREA NITROGEN 14 mg/dL (7-18); CHLORIDE 103 mmol/L (98-107); CO2 27 mmol/L (21-32); CREATININE 0.7 mg/dL (0.55-1.3); GLUCOSE,RANDOM 82 mg/dL (74-106); POTASSIUM 4.7 mmol/L (3.5-5.1); SGOT/AST 13 U/L (15-37); SGPT/ALT 28 U/L (13-61); SODIUM 138 mmol/L (136-145); TOT PROT 7.6 g/dl (6.4-8.2)
[2018-06-15 10:02] LABS: INR 1.26 (0.83-1.09); PROTHROMBIN TIME (PATIENT) 14.9 SEC (9.7-13.0)
[2018-06-15 12:35] VITALS: BP 143/94; PULSE 83; TEMP 97.9
== END 2018-06-15 13:54 | disposition home or self-care (01) ==
LOC: JER 07:27
DX: M43.02 Spondylolysis, cervical region (principal); G95.9 Disease of spinal cord, unspecified; M54.10 Radiculopathy, site unspecified
CPT/HCPCS: 36415; 72050-TC-FY; 72141-TC; 80053; 85025; 85610; 86850; 86900; 86901; 99282-25